=== PATIENT | male | born 1955 | race Caucasian/White ===

== ENCOUNTER 2019-08-09 05:19 | Emergency (ER) | payer MEDICARE, OTHER ==
[~2019-08-09] VITALS: Ht 162.6 cm; Wt 82.8 kg
[2019-08-09 05:44] VITALS: BP 158/64
--- NOTE | 2019-08-09 05:54 | NUR ---
XRAY AT BEDSIDE.
[2019-08-09] MEDS ORDERED: CLOP75TA PO (06:00)
[2019-08-09] MEDS ORDERED: GLIP10TA13 PO (06:00)
[2019-08-09] MEDS ORDERED: METO25TA35 PO (06:00)
[2019-08-09] MEDS ORDERED: ATOR40TA78 PO (06:00)
[2019-08-09] MEDS ORDERED: LISI-167 PO (06:00)
[2019-08-09] MEDS ORDERED: ALLO100T30 PO (06:00)
[2019-08-09] MEDS ORDERED: PRAV20TA2 PO (06:00)
[2019-08-09] MEDS ORDERED: LEVO137T3 PO (06:00)
[2019-08-09] MEDS ORDERED: NEOSPORIN OINT. PKT 1 PACKET ONE (06:29)
== END 2019-08-09 06:44 | disposition home or self-care (01) ==
LOC: ED 05:51
DX: E11.621 Type 2 diabetes mellitus with foot ulcer (principal); E11.622 Type 2 diabetes mellitus with other skin ulcer; L97.519 Non-pressure chronic ulcer of other part of right foot with unspecified severity; L98.499 Non-pressure chronic ulcer of skin of other sites with unspecified severity; I25.10 Atherosclerotic heart disease of native coronary artery without angina pectoris; E78.5 Hyperlipidemia, unspecified; I10 Essential (primary) hypertension; Z98.61 Coronary angioplasty status; Z86.39 Personal history of other endocrine, nutritional and metabolic disease
CPT/HCPCS: 82962; 99283